=== PATIENT | female | born 1980 | race Caucasian/White ===

== ENCOUNTER 2016-05-16 14:08 | Inpatient (IN) | payer MEDICARE ==
--- NOTE | ~2016-05-16 | PN ---
Unit #: [id number] #: [id number] Patient: STEVAN PAREDES [id number] [facility] [address] [place] [address] [id number] MR#: [id number] NAME: STEVAN PAREDES ROOM: P258 Age: 36 Sex: F Admission Date: 05/16/2016 : 1980 Attending Physician: Carlitos Wilkerson M.D. Admitting Physician: Carlitos Wilkerson M.D. Primary Care Physician: Primary Care Physician Queta GAO PROGRESS NOTES DATE May 20, 2016 DISCUSSION Ms. Paredes is a 36-year-old white female, who was seen today and chart was reviewed and the case was discussed with the staff. She, once again, was seen to be curled up in the bed and reports not feeling good and was exhibiting significant depressive symptoms with agitated complaints stating that she is just trying to adjust and was seen to have blunted affect with minimal interaction and poor eye contact. She was also expressing feelings of hopelessness and restlessness and though she has been taking medications, she has not yet been making therapeutic response to medications. MENTAL STATUS EXAMINATION Young white female, who was casually dressed with fair personal hygiene and appears to be in no acute distress or discomfort. She was awake and alert on interaction with intact orientation. Her mood was anxious and depressed with a congruent affect. She reports having suicidal ideations but denies any homicidal ideations. Her insight and judgment remain significantly impaired. TREATMENT PLAN 1. We will continue her on her current medications and treatment protocol, and will monitor her response to the medications, and make further adjustments as needed. 2. We will continue to followup. Dictated by... Taylor Mack/masoud TD: 05/22/2016 05:03 JOB #: [id number] Unit #: [id number] #: [id number] Patient: STEVAN PAREDES [facility] PROGRESS NOTES Page 1 of 1 X Carlitos Wilkerson MD X PROGRESS NOTE
--- NOTE | ~2016-05-16 | DS ---
Unit #: [id number] #: [id number] Patient: [facility] PARED[facility] [id number] [facility] [place] [address] [id number] MR#: [id number] NAME: STEVAN PAREDES ROOM: P258 Age: 36 Sex: F Admission Date: 05/16/2016 : 1980 Discharge Date: 05/24/2016 Attending Physician: Carlitos Wilkerson M.D. Primary Care Physician: Primary Care Physician No DISCHARGE SUMMARY IDENTIFYING DATA Ms. Paredes is a 36-year-old single white female, who is a resident of [place], [place] and was self-referred to the hospital on a voluntary basis. DISCHARGE DIAGNOSES Psychiatric: Major depressive disorder, recurrent, moderate, with psychosis; generalized anxiety disorder. Medical: None. Stressors: Moderate psychosocial stressors. HISTORY OF PRESENT ILLNESS Please see initial psychiatric evaluation for details. PAST PSYCHIATRIC HISTORY Please see initial psychiatric evaluation for details. PAST MEDICAL HISTORY Please see initial psychiatric evaluation for details. HOSPITAL COURSE The patient was admitted to the adult psychiatric unit at [facility] and was oriented to the hospital environment. Routine p.r.n. medications were initiated, and she was started back on her home medications and medications were adjusted, and she was closely monitored. She was having some significant depression, anxiety, and was not responding well to the medications, and as such, medications were adjusted quite regularly, thus she started showing some therapeutic response and at which point, it was decided that she will be discharged home and will continue treatment on an outpatient basis. DISCHARGE MEDICATIONS Celexa 20 mg a day for depression, Risperdal 1 mg at bedtime for psychosis, and Neurontin 400 mg t.i.d. for anxiety. DISCHARGE CONDITION Stable. PROGNOSIS Fair. Dictated by... Carlitos Wilkerson M.D. Unit #: [id number] #: [id number] Patient: STEVAN PAREDES IAA/modl TD: 05/24/2016 08:07 JOB #: [id number] DISCHARGE SUMMARY Page 1 of 1 X Carlitos Wilkerson MD X DISCHARGE SUMMARY
--- NOTE | ~2016-05-16 | PN ---
Unit #: [id number] #: [id number] Patient: STEVAN PAREDES [id number] [facility] [address] [place] [address] [id number] MR#: [id number] NAME: STEVAN PAREDES. ROOM: P258 Age: 36 Sex: F Admission Date: 05/16/2016 : 1980 Attending Physician: Carlitos Wilkerson M.D. Admitting Physician: Carlitos Wilkerson M.D. Primary Care Physician: Primary Care Physician Queta GAO PROGRESS NOTES DATE OF SERVICE 05/21/2016 DISCUSSION Ms. Paredes is a 36-year-old white female who was seen today. Chart was reviewed and case was discussed with staff. She has been anxious, withdrawn, depressed, and rather seclusive to herself. Meanwhile, she has been cooperative with treatment recommendations and has been taking the medications and tolerating them fairly well with no reported side effects. MENTAL STATUS EXAMINATION Young white female who is casually dressed with fair personal hygiene and appears to be in no acute distress or discomfort. She was awake and alert on interaction with intact orientation. Her mood is anxious and depressed with congruent affect. Her speech is slow and goal-directed. She denies any suicidal or homicidal ideations and also denies any auditory or visual hallucinations. Her insight and judgment remain slightly impaired. TREATMENT PLAN 1. We will continue her on her current medications and treatment protocol. We will monitor her response and make further adjustments as needed. 2. We will continue to follow up. Dictated by... Taylor Mack/tiarra TD: 05/22/2016 10:26 JOB #: [id number] Unit #: [id number] #: [id number] Patient: STEVAN PAREDES [facility] PROGRESS NOTES Page 1 of 1 X Carlitos Wilkerson MD X PROGRESS NOTE
--- NOTE | ~2016-05-16 | CO ---
Unit #: [id number] #: [id number] Patient: CAMILLA CABALLERO [id number] [place] [address] [id number] I MR#: [id number] NAME: CAMILLA CABALLERO ROOM: P258 Age: 36 Sex: F Admission Date: 05/16/2016 : 1980 Attending Physician: Carlitos Wilkerson M.D. Primary Care Physician: Primary Care Physician No Consultation Date: 05/22/2016 CONSULTATION REPORT SUBJECTIVE Camilla is a 36-year-old who complained of an irritating vaginal discharge. We have been asked to treat. From Camilla's description, it is most likely is yeast vaginitis. We will treat with Diflucan 150 mg p.o. x1 dose. Dictated by... Cici Gifford P.A.-C. for Taylor Silva/selwyn TD: 05/24/2016 02:06 JOB #: [id number] CONSULTATION REPORT Page 1 of 1 X Cici Gifford CONSULTATION REPORT
--- NOTE | ~2016-05-16 | PN ---
Unit #: [id number] #: [id number] Patient: STEVAN PAREDES [id number] [facility] [address] [place] [address] [id number] I MR#: [id number] NAME: STEVAN PAREDES. ROOM: P258 Age: 36 Sex: F Admission Date: 05/16/2016 : 1980 Attending Physician: Carlitos Wilkerson M.D. Admitting Physician: Carlitos Wilkerson M.D. Primary Care Physician: Primary Care Physician Queta GAO PROGRESS NOTES DATE 05/22/2016 DISCUSSION Ms. Paredes is a 36-year-old white female who was seen today and chart was reviewed and case was discussed with the staff. She has been anxious, withdrawn though has not shown any agitation, irritability or behavioral problems and has been cooperative with treatment recommendations and has been taking medications and tolerating them fairly well. MENTAL STATUS EXAMINATION Young white female who was casually dressed with fair personal hygiene and appears to be in no acute distress or discomfort. She was awake and alert on interaction with intact orientation. Her mood was anxious with congruent affect. Her speech is slow and restricted in content. Her thought processes were disorganized with some looseness of associations. Her insight and judgement remains significantly impaired. TREATMENT PLAN 1. Will continue on current medications and treatment protocol. Will monitor her response and make further adjustments as needed. 2. Will continue to follow up. Dictated by... Carlitos Wilkerson M.D. IAA/adiliah TD: 05/23/2016 18:12 JOB #: [id number] Unit #: [id number] #: [id number] Patient: STEVAN PAREDES [facility] PROGRESS NOTES Page 1 of 1 X Carlitos Wilkerson MD X PROGRESS NOTE
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
--- NOTE | ~2016-05-16 | PN ---
Unit #: [id number] #: [id number] Patient: STEVAN PAREDES [id number] [facility] [address] [place] [address] [id number] I MR#: [id number] NAME: STEVAN PAREDES. ROOM: [facility] Age: 36 Sex: F Admission Date: 05/16/2016 : 1980 Attending Physician: Carlitos Wilkerson M.D. Admitting Physician: Carlitos Wilkerson M.D. Primary Care Physician: Primary Care Physician Queta GAO PROGRESS NOTES DATE OF SERVICE 05/17/2016 DISCUSSION Ms. Paredes is a 36-year-old white female who was seen today. Chart was reviewed and case was discussed with staff. She was seen to be anxious, withdrawn, and seclusive to herself with blunted affect and minimal interaction. Meanwhile, she has been taking the medications and tolerating them fairly well with no reported side effects. MENTAL STATUS EXAMINATION Young white female who is casually dressed with fair personal hygiene, appears to be in no acute distress or discomfort. The patient was awake and alert with intact orientation. Her mood is anxious with a congruent affect. She reports having suicidal ideation but denies any homicidal ideations. Her insight and judgment remain slightly impaired. TREATMENT PLAN 1. We will continue her on her current medications and treatment protocol. We will monitor her response to medications and make further adjustments as needed. 2. We will continue to follow up. Dictated by... Carlitos Wilkerson M.D. IAA/rudyg TD: 05/17/2016 14:28 JOB #: [id number] Unit #: [id number] #: [id number] Patient: STEVAN PAREDES [facility] PROGRESS NOTES Page 1 of 1 X Carlitos Wilkerson MD X PROGRESS NOTE
--- NOTE | ~2016-05-16 | PN ---
Unit #: [id number] #: [id number] Patient: STEVAN PAREDES [id number] [facility] [address] [place] [address] [id number] I MR#: [id number] NAME: STEVAN PAREDES. ROOM: P258 Age: 36 Sex: F Admission Date: 05/16/2016 : 1980 Attending Physician: Carlitos Wilkerson M.D. Admitting Physician: Carlitos Wilkerson M.D. Primary Care Physician: Primary Care Physician Queta GAO PROGRESS NOTES DATE 05/23/2016 DISCUSSION Ms. Paredes is a 36-year-old white female with mood disorder who was seen today and chart was reviewed and case was discussed with the staff. She has been anxious, withdrawn and rather seclusive to herself. Meanwhile, she and has been cooperative with treatment recommendations and has been taking medications and tolerating them fairly well. MENTAL STATUS EXAMINATION Young white female who was casually dressed with fair personal hygiene, appears to be in no acute distress or discomfort. She was awake and alert on interaction with intact orientation. Her mood was anxious with congruent affect. Her speech was slow and goal-directed. She denies any suicidal or homicidal ideations. Also, denies any auditory or visual hallucinations. Her insight and judgement remains slightly impaired. TREATMENT PLAN 1. We will continue her on her current medications and treatment protocol. We will monitor her response to the medication and make further adjustments as needed. 2. We will continue to follow up. Dictated by... Taylor Mack/jonathan TD: 05/27/2016 04:11 JOB #: [id number] Unit #: [id number] #: [id number] Patient: STEVAN PAREDES [facility] PROGRESS NOTES Page 1 of 1 X Carlitos Wilkerson MD PROGRESS NOTE
--- NOTE | ~2016-05-16 | PN ---
Unit #: [id number] #: [id number] Patient: STEVAN PAREDES [id number] [facility] [address] [place] [address] [id number] MR#: [id number] NAME: STEVAN PAREDES. ROOM: P258 Age: 36 Sex: F Admission Date: 05/16/2016 : 1980 Attending Physician: Carlitos Wilkerson M.D. Admitting Physician: Carlitos Wilkerson M.D. Primary Care Physician: Primary Care Physician Queta GAO PROGRESS NOTES DATE 05/18/2016 DISCUSSION Ms. Paredes is a 36-year-old white female who was seen today and chart was reviewed and case was discussed with staff. She was seen to be anxious, withdrawn, and rather seclusive to herself with blunted affect and minimal interaction. Meanwhile, she has been cooperative with treatment recommendation and has been taking medications and tolerating them fairly well with no reported side effects. MENTAL STATUS EXAMINATION Young white female who is casually dressed with fair personal hygiene, appears to be in no acute distress or discomfort. She was awake and alert on interaction with intact orientation. Her mood was anxious with a congruent affect. She denies any suicidal or homicidal ideation. Her insight and judgment remain slightly impaired. TREATMENT PLAN 1. We will continue her on her current medications and treatment protocol. We will monitor her response to medications and make further adjustments as needed. 2. We will continue to follow up. Dictated by... Taylor Mack/maikol TD: 05/19/2016 09:01 JOB #: [id number] Unit #: [id number] #: [id number] Patient: STEVAN PAREDES [facility] PROGRESS NOTES Page 1 of 1 X Carlitos Wilkerson MD X PROGRESS NOTE
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
--- NOTE | ~2016-05-16 | PN ---
Unit #: [id number] #: [id number] Patient: STEVAN PAREDES [id number] [facility] [address] [place] [address] [id number] MR#: [id number] NAME: STEVAN PAREDES. ROOM: P258 Age: 36 Sex: F Admission Date: 05/16/2016 : 1980 Attending Physician: Carlitos Wilkerson M.D. Admitting Physician: Carlitos Wilkerson M.D. Primary Care Physician: Primary Care Physician Queta GAO PROGRESS NOTES DATE OF SERVICE: 05/19/2016 SUBJECTIVE Ms. Paredes is a 36-year-old white female who was seen today and chart was reviewed, and case was discussed with the staff. She remains anxious, withdrawn, depressed, and seen to be rather very seclusive to herself stating that she is just trying to adjust and was minimally interactive and has not been socializing very much and does appear to be exhibiting significant depressive symptoms. Meanwhile, she has been taking medications and tolerating them fairly well with no reported side effects. MENTAL STATUS EXAMINATION Young white female who was casually dressed with fair personal hygiene and appears to be in no acute distress or discomfort. She was awake and alert on interaction with intact orientation. Her mood was anxious and depressed with a congruent affect. She denies any current suicidal or homicidal ideation, and also denies any auditory or visual hallucinations. Her insight and judgment remain slightly impaired. TREATMENT PLAN 1. We will continue on her current medications and treatment protocol. We will monitor her response to medications and make further adjustments as needed. 2. We will continue to follow up. Dictated by... Taylor Mack/selwyn TD: 05/21/2016 06:53 JOB #: [id number] Unit #: [id number] #: [id number] Patient: STEVAN PAREDES [facility] PROGRESS NOTES Page 1 of 1 X Carlitos Wilkerson MD PROGRESS NOTE
[2016-05-17 09:30] LABS: BASOPHIL% 0.4 % (0-2.5); EOSINOPHIL# 0.2 X10e3 (0-0.7); HEMATOCRIT 38.8 % (35.0-45.0); LYMPHOCYTE# 2.4 X10e3 (1.0-3.5); LYMPHOCYTE% 47.5 % (17.0-45.0); MEAN CELL VOLUME 98.9 FL (83-96); MEAN CORPUSCULAR HEMOGLOBIN 33.1 PG (28-34); MEAN CORPUSCULAR HGB CONC 33.5 g/dL (30-36); MONOCYTE# 0.5 X10e3 (0-1.0); MONOCYTE% 10.4 % (3.0-12.0); NEUTROPHIL% 38.7 % (40-75); PLATELET COUNT 242 X10e3 (140-420); RED BLOOD COUNT 3.92 X10e (3.90-5.30); RED CELL DISTRIBUTION WIDTH 13.2 % (11.0-15.5); WHITE BLOOD COUNT 5.1 X10e3 (4.0-10.5)
[2016-05-17 09:32] LABS: DIFF IND NO
[2016-05-17 09:43] LABS: URINE APPEARANCE CLOUDY; URINE BILIRUBIN NEG (NEG); URINE BLOOD NEG (NEG); URINE COLOR YELLOW; URINE GLUCOSE NEG (NEG); URINE KETONE NEG (NEG); URINE LEUKOCYTE ESTERASE 2+ (NEG); URINE NITRATE NEG (NEG); URINE PH 5.5 (5-8); URINE PROTEIN NEG (NEG); URINE SPECIFIC GRAVITY 1.021 (1.003-1.035); URINE UROBILINOGEN 0.2 MG/DL (NEG)
[2016-05-17 09:47] LABS: URINE BACTERIA AUWI NEG (NEGATIVE); URINE SQUAMOUS EPITHELIAL CELL MOD /[HPF]
[2016-05-17 09:58] LABS: THYROID STIMULATING HORMONE 0.56 uIU/ml (0.34-5.60)
[2016-05-17 10:05] LABS: FREE THYROXIN (T4) 0.79 ng/dL (0.58-1.64)
[2016-05-17 10:29] LABS: ALBUMIN SERUM 3.7 g/dL (3.5-5.0); BILIRUBIN,TOTAL 0.4 mg/dL (0.2-2.0); CALCIUM SERUM 9.2 mg/dL (8.4-10.2); CREATININE SERUM 0.6 mg/dL (0.6-1.4); GLOM FILT RATE Estimated 116.4 mL/min (>60); POTASSIUM 4.6 mmol/L (3.5-5.1); PROTEIN TOTAL SERUM 6.5 g/dL (6.0-8.3)
[2016-05-17 10:51] LABS: AMPHETAMINE NEG (NEG); BARBITURATES NEG (NEG); BENZODIAZEPINES NEG (NEG); COCAINE NEG (NEG); MARIJUANA NEG (NEG); OPIATES POS (NEG); TRICYCLIC ANTIDEPRESSANTS NEG (NEG); U METHADONE NEG (NEG)
== END 2016-05-24 09:45 | disposition home or self-care (01) | DRG 885 ==
LOC: P1S 14:08 → P2L 05-18 13:31
PROVIDERS: Psychiatry & Neurology Psychiatry
DX: F33.1 Major depressive disorder, recurrent, moderate (principal); F29 Unspecified psychosis not due to a substance or known physiological condition; B37.3 Candidiasis of vulva and vagina; F41.1 Generalized anxiety disorder; F17.210 Nicotine dependence, cigarettes, uncomplicated
CPT/HCPCS: 80053; 80307; 81003; 84439; 84443; 84703; 85025